=== PATIENT | male | born 1960 | race Caucasian/White ===

== ENCOUNTER 2024-08-09 06:39 | Outpatient (OUT) | payer OTHER, SELFPAY ==
--- NOTE | 2024-08-09 | PCN_ITS ---
CARDIAC STRESS TEST Requesting Physician: Procedure Date: 08/09/2024 This is a Lexiscan stress test. INDICATION: Coronary artery disease. STRESS TEST INFORMATION: The patient was brought to the Stress Lab in a resting and fasting state. He was connected to the appropriate hemodynamic and electrocardiographic monitoring. Lexiscan 0.4 mg was infused intravenously. He was monitored for the standard duration and discharged in a stable state. There were no complications. HEMODYNAMICS: Resting heart rate was 56 beats per minute, increasing to a maximum of 79 beats per minute. Resting blood pressure was 124/70 with a maximum of 134/64. ELECTROCARDIOGRAPHY: Rest EKG: Sinus rhythm, inferior infarct, age indeterminate. Abnormal EKG. During infusion and recovery: No significant ST-T wave changes noted, no significant arrhythmia seen. FINAL IMPRESSIONS: 1. No ischemic EKG changes seen on Lexiscan pharmacological stress test. 2. Nuclear images are to be read, interpreted and reported in a separate dictation. DANNIELLE
--- NOTE | 2024-08-09 06:45 | NM_ITS ---
Patient Name: KRIS GIRALDO MR#: [id number] : 1960 Exam Date: 08/09/2024 Ordering Doctor: JIM EDWARDS CNP RADIOLOGY REPORT PROCEDURE: NM HANS PERF SPECT REST STR COMPARISON: None. INDICATIONS: CORONARY ARTERY DISEASE TECHNIQUE: Exam Description: Stress/Rest one day protocol gated SPECT Rest Imagin.6 mCi Tc-99m Cardiolite IV on 08/09/2024 Stress Imaging 28.0 mCi Tc-99m Cardiolite IV on 08/09/2024 Exercise Protocol: 0.4 mg Lexiscan given IV Heart Rate (bpm): Rest: 57 Max: 80 PMHR: 50 Blood Pressure: Rest: 124/70 Max: 134/64 Symptoms: Rest and peak stress ECG findings were normal and the exercise portion of the study was normal per attending physician Dr. Bautista . For more details please see separate cardiac stress test report. FINDINGS: QUALITY OF STUDY: Excellent. PERFUSION DEFECT: LOCATION: Mild involving: Basal inferior. Mid-inferior. Apical inferior. Sever involving: [place] SIZE: Medium (3-4 segments). SEVERITY: See above. TYPE: Persistent. WALL MOTION: Normal. LV SIZE: Normal. 121 mL. TID / TCD: None; 0.9 LVEF: Abnormal. Calculated EF 50%. SUMMARY: Myocardial perfusion imaging study has ABNORMAL findings. CONCLUSION: 1. No acute or reversible ischemia. 2. Markedly absent perfusion of the apex during stress and rest imaging consistent with remote infarction. 3. Mildly decreased perfusion throughout the inferior wall; unchanged between stress and rest imaging. 4. Low ejection fraction, 50%. 5. Left ventricle size is within normal limits, 121 mL, but approaches the upper limits of normal 125 mL. Dictated by: Garfield Godinez M.D. on 08/09/2024 at 16:17 Approved by: Garfield Godinez M.D. on 08/09/2024 at 16:23
--- NOTE | 2024-08-09 06:45 | CA_ITS ---
Patient Name: KRIS GIRALDO MR#: [id number] : 1960 Exam Date: 08/09/2024 Ordering Doctor: JIM EDWARDS CNP ECHOCARDIOGRAM REPORT PROCEDURE: CA ECHO DOPPLER COMPLETE INDICATIONS: Heart failure with reduced ejection fraction COMPARISON: None. DESCRIPTION: COMPLETE ECHOCARDIOGRAM Real-time transthoracic echocardiography with 2D, M-mode, spectral and color flow Doppler performed. QUALITY: Technical quality was good. LEFT VENTRICLE: Normal chamber size. Mild concentric left ventricular hypertrophy. Global left ventricular systolic function is normal. LV EF: Estimated left ventricular ejection fraction is 60%. DIASTOLIC: Grade I diastolic dysfunction. ATRIAL SEPTUM: LEFT ATRIUM: Normal chamber size. RIGHT ATRIUM: Normal chamber size. RIGHT VENTRICLE: Normal chamber size. Normal right ventricular systolic function. TRICUSPID VALVE: Normal mobility and thickness. No stenosis with trivial regurgitation. No evidence of pulmonary hypertension. RVSP 25 mmHg MITRAL VALVE: Normal mobility and thickness. No evidence of mitral valve stenosis. There is no mitral annular calcification. No mitral regurgitation. AORTIC VALVE: Normal trileaflet appearance. Mildly calcified aortic valve. Normal leaflet mobility. No evidence of aortic valve stenosis. No aortic regurgitation. AORTIC ROOT: Normal diameter and appearance. Normal size normal diastolic function ascending aorta measuring 3.4 cm. PULMONIC VALVE: Normal thickness and mobility. No stenosis. Trivial regurgitation. PERICARDIUM: No evidence of pericardial effusion. IVC: Collapses with inspirations. Normal size. PLEURA: CONCLUSION: 1. Mild concentric left ventricular hypertrophy with normal systolic function. Estimated LVEF is 60%. 2. Normal right ventricular size and systolic function. 3. No significant valvular dysfunction. 4. Normal right-sided pressures. 5. No pericardial effusion. Adult Echocardiography Procedure Report Left Ventricle LVEDD (3.7 - 5.6 cm): 4.17 cm LVESD (2.2 - 4.0 cm): 3.20 cm LVIVS thickness (0.6 - 1.2 cm): 1.15 cm LVPW thickness (0.5 - 1.0 cm): 1.31 cm e': 0.10 m/s E - e': 5.86 LVOT Max Gradient: 4.13 mm[Hg] LVOT Area (cm2): 1.02 m/s Peak Velocity (LVOT): 1.02 m/s Mean Velocity (LVOT): 0.61 m/s LVOT Diameter 1.97 cm Left Ventricular Ejection Fraction: 60 % Left Atrium LA Volume Index (2D A2C): 31.76 ml/m2 Left Atrium Systolic Dimension: 2.90 cm Mitral Valve MV E to A Ratio: 0.80 Mitral Valve A-Wave Peak Velocity: 0.74 m/s Mitral Valve E-Wave Peak Velocity: 0.60 m/s Right Ventricle RV Internal Diastolic Dimension: 3.64 cm Aorta AO Root Diam: 3.64 cm Ascending Ao Diam: 3.45 cm Aortic Valve AoV Area (Peak Kiran): 2.46 cm2, 2.46 cm2 AoV Area (VTI): 2.11 cm2, 2.11 cm2 Peak Velocity(Antegrade Flow): 1.26 m/s Peak Gradient(Antegrade Flow): 6.39 mm[Hg] Mean Velocity(Antegrade Flow): 0.89 m/s Mean Gradient(Antegrade Flow): 3.59 mm[Hg] Velocity Time Integral: 30.76 cm Tricuspid Valve Peak Velocity (Regurgitant Flow): 1.82 m/s, 2.33 m/s Pulmonic Valve Mean Gradient: 2.94 mm[Hg] Mean Velocity: 0.77 m/s Peak Velocity: 1.27 m/s, 1.30 m/s Peak Gradient: 6.49 mm[Hg], 6.79 mm[Hg] Right Atrium Right Atrium Systolic Pressure: 43.87 ml, 43.87 ml Dictated by: Chau Lyman M.D. on 08/10/2024 at 20:28 Approved by: Chau Lyman M.D. on 08/10/2024 at 20:31
[2024-08-09] MEDS: REGADENOSON 0.4 MG/5 ML SYRINGE IV (08:47)
--- NOTE | 2024-08-09 09:19 | PC.NURSE ---
Nursing Note Cardiac Stress Test Reviewed: Medication, allergies and patient history reviewed. Stress Test: [ x] Patient tolerated stress test well. [ ] Patient unable to tolerate walking on treadmill. Switched to Lexiscan stress test. [ x] No chest pain noted per patient [ ] Chest pain that resolved prior to leaving stress lab. [x ] No dyspnea noted. [ ] Dyspnea that resolved prior to leaving stress lab. [x ] Patient left stress lab asymptomatic and hemodynamically stable. [ ] Patient taken to the Emergency Room due to non-resolving symptoms following stress test. [ ] Patient achieved target heart rate. [ ] Patient unable to achieve target heart rate. [ ] Aminophylline administered as reversal agent to Lexiscan (Regadenoson). [ ] Nitro administered. Nursing Comments:Pt had Lexiscan done and tolerated well. NO symptoms reported per patient. Pt ambulated to cafeteria for breakfast prior to second set of images.
== END 2024-08-09 06:40 | disposition home or self-care (01) ==
LOC: NM 06:42
PROVIDERS: PCP Internal Medicine; Visit Provider Nurse Practitioner Family
DX: I25.10 Atherosclerotic heart disease of native coronary artery without angina pectoris (principal); R53.83 Other fatigue; I50.32 Chronic diastolic (congestive) heart failure
CPT/HCPCS: 78452; 93017; 93306; 93356; A9500; J2785